=== PATIENT | male | born 1975 | race African-American/Black ===

== ENCOUNTER 2018-01-19 08:35 | Emergency (ER) | payer SELFPAY ==
[2018-01-19] MEDS ORDERED: Sodium Bicarbonate 2.5 MEQ/5 ML VIAL ONE (08:53)
[2018-01-19] MEDS ORDERED: Adacel (T-DAP) 0.5 ML VIAL ONE (09:06)
[2018-01-19] MEDS ORDERED: Sulfameth/Trimethoprim DS 800-160mg TAB ONE (09:13)
[2018-01-19] MEDS ORDERED: HYDROcodone/Acetaminophen 5/325 mg Tablet ONE (09:14)
== END 2018-01-19 09:22 | disposition home or self-care (01) ==
LOC: BURERS 08:35
DX: L02.412 Cutaneous abscess of left axilla (principal); F17.210 Nicotine dependence, cigarettes, uncomplicated
CPT/HCPCS: 10060; 87070; 87077; 87186; 87205; 90471; 90715